=== PATIENT | female | born 1970 | race African-American/Black ===

== ENCOUNTER → 2016-03-01 | Outpatient (CLI) | payer OTHER ==
--- NOTE | 2016-03-01 10:56 | XR ---
EXAMINATION TYPE: XR chest 2V DATE OF EXAM: 03/01/2016 10:34 AM COMPARISON: None HISTORY: 45-year-old female with cough for 3 days TECHNIQUE: Frontal and lateral views FINDINGS: Heart is upper limits of normal in size. Aorta and pulmonary vasculature within normal limits. Some s trandy atelectasis in the lower lungs. No consolidation or pleural effusion. IMPRESSION: No acute cardiopulmonary process.
== END | disposition home or self-care (01) ==
LOC: RADXRMAIN 10:25
PROVIDERS: ATTEND Family Medicine
DX: R05 Cough (principal)
CPT/HCPCS: 71020

== ENCOUNTER → 2016-03-23 | Outpatient (CLI) | payer OTHER ==
--- NOTE | 2016-03-23 08:30 | MR ---
EXAMINATION TYPE: MR shoulder RT wo con DATE OF EXAM: 03/23/2016 8:08 AM COMPARISON: NONE HISTORY: pain and limited ROM TECHNIQUE: Multiplanar multispin echo imaging of the right shoulder was performed. FINDINGS: Rotator cuff : Thickening and heterogeneity of the supraspinatus tendon compatible with chronic tendi nopathy. Several intrasubstance partial tear is noted. No evidence for complete full-thickness tear. Tendinosis and small amount of adjacent fluid involving the subscapularis tendon. Remaining rotator c uff tendons are grossly unremarkable. Bursa: No bursal effusion or thickening is seen. Musculature: There is no muscular tear, contusion, or atrophy. Acromioclavicular joint : Moderate AC joint arthropathy. Subacromial spur resulting in impingement. Osseous structures : There are no fractures or regions of abnormal bone marrow signal intensity. Long biceps tendon : The biceps tendon is normally situated within the bicipital groove. No complete or partial biceps tendon tear is present. Glenohumeral Joint fluid : There is no glenohumeral joint effusion. Cartilage and Bone : No focal hyaline cartilage defects are noted. No Hill-Sachs, reverse Hill-Sachs, or bony Bankart lesions are seen. Labrum : There are no SLAP or soft tissue Bankart lesions. No paralabral cysts are seen. OTHER FINDINGS : none IMPRESSION: 1. Thickening and heterogeneity of the supraspinatus tendon compatible with chronic tendinopathy. Sev eral intrasubstance partial tear is noted. No evidence for complete full-thickness tear. 2. Subacromial impingement
== END | disposition home or self-care (01) ==
LOC: RADMRIMAIN 07:17
PROVIDERS: ATTEND Orthopaedic Surgery
DX: M75.111 Incomplete rotator cuff tear or rupture of right shoulder, not specified as traumatic (principal); M25.811 Other specified joint disorders, right shoulder